=== PATIENT | male | born 1955 | race Caucasian/White ===

== ENCOUNTER → 2020-05-11 11:55 | Outpatient (CLI) | payer MEDICARE, OTHER, SELFPAY ==
--- NOTE | 2020-05-11 | DI.MRI.S_ITS ---
PROCEDURE: MR KNEE RT WO CON INDICATIONS: Unilateral primary osteoarthritis, right knee TECHNIQUE: Noncontrast sagittal PD fast spin echo and T2 fast spin echo with fat saturation, sagittal 3-D FLASH with fat saturation; coronal T1 spin echo and PD fast spin echo with fat saturation, and axial PD fast spin echo with fat saturation through the knee. COMPARISON: None. FINDINGS: Image quality: Excellent. Menisci: Markedly attenuated appearance of body and posterior horn of medial meniscus consistent with chronic complex tear extending to superior and inferior articulating surfaces. Peripheral displacement of medial meniscus bowing medial collateral ligament. Vertical tear involving anterior horn of lateral meniscus is also seen extending to both superior and inferior articulating surfaces. The lateral meniscal root ligament is intact. Torn medial meniscal root ligament is seen. Cruciate ligaments: There is nonvisualization of normal anterior cruciate ligament suggestive of chronic ACL rupture. PCL is intact. Medial structures: Moderate grade MCL sprain is seen. The posterior oblique ligament, semimembranosus tendon insertions, oblique popliteal ligament, and meniscocapsular junction appear intact. Visualized portions of the pes anserinus tendons appear normal. No abnormal bursal fluid. Lateral structures: Proximal LCL sprain/partial-thickness tear is also noted. The popliteus tendon appears normal; the popliteofibular ligament appears intact. The posterosuperior and anteroinferior popliteomeniscal fascicles appear intact. The arcuate and fabellofibular ligaments appear intact, on either side of the lateral inferior geniculate artery. Iliotibial band appears normal. Anterior structures: The quadriceps and patellar tendons appear intact. Patellar alignment is normal. No femoral trochlear dysplasia or ventral trochlear prominence. No edema in the infrapatellar fat pad. Bones and cartilage: Severe medial femoral tibial compartment osteoarthritis and high-grade chondromalacia is seen. Moderate grade osteoarthritis and chondromalacia involving lateral femoral tibial compartment is seen. There is also low to moderate grade chondromalacia and osteoarthritis involving patellofemoral compartment. Nonspecific subcortical cyst formation involving lateral periphery of lateral femoral condyle is seen near proximal LCL insertion. Joint space: There is small to moderate amount of joint fluid. No Mcpherson's cyst. Normal appearing synovial plicae are incidentally noted. IMPRESSION: 1. Severe medial femoral tibial compartment osteoarthritis and chondromalacia. Mild to moderate lateral femoral tibial compartment and patellofemoral compartment osteoarthritis and chondromalacia. No fracture or dislocation. Small to moderate amount of joint fluid. 2. Suggestion of chronic complex tear involving body and posterior horn of medial meniscus with peripheral displacement of medial meniscal remanent bowing medial collateral ligament. There is torn medial meniscal root ligament. 3. Vertical tear involving anterior horn of lateral meniscus extending to both superior and inferior articulating surfaces. 4. Moderate grade MCL sprain. Moderate grade proximal LCL sprain/partial-thickness tear. 5. Suggestion of chronic ACL rupture. PCL is intact. Dictated by: Josué Khan M.D. on 05/11/2020 at 13:02 Approved by: Josué Khan M.D. on 05/11/2020 at 15:56
== END ==
PROVIDERS: PCP Student in an Organized Health Care Education/Training Program; Referring Provider Orthopaedic Surgery; Visit Provider Orthopaedic Surgery
DX: M17.11 Unilateral primary osteoarthritis, right knee (principal); M94.261 Chondromalacia, right knee; S83.281A Other tear of lateral meniscus, current injury, right knee, initial encounter; S83.421A Sprain of lateral collateral ligament of right knee, initial encounter; S83.411A Sprain of medial collateral ligament of right knee, initial encounter
CPT/HCPCS: 73721

== ENCOUNTER → 2020-06-01 07:50 | Outpatient (CLI) | payer MEDICARE, OTHER, SELFPAY ==
[2020-06-01 08:02] LABS: RBC Urine None Seen (0-5/HPF); WBC Urine None Seen (0-5/HPF)
[2020-06-01 09:44] LABS: Add Manual Diff / Slide Review NO; Basophils Absolute Auto 0 /uL (0-100); Basophils Percent Auto 0.9 % (0-2); Eosinophils Absolute Auto 100 /uL (0-450); Eosinophils Percent Auto 2.3 % (2-4); Hematocrit 39.5 % (41-53); Hemoglobin 13.2 g/dL (13.5-17.5); Lymphocytes Absolute Auto 1100 /uL (1100-4500); Lymphocytes Percent Auto 37.3 % (25-40); Mean Corpuscular HGB Conc 33.4 % (30-36); Mean Corpuscular Hemoglobin 29.9 PG (26-34); Mean Corpuscular Volume 89.6 fL (80-100); Monocytes Absolute Auto 300 /uL (0-900); Neutrophils Absolute Auto 1500 /uL (1500-7000); Neutrophils Percent Auto 50.5 % (50-75); Platelet Count 143 X10^3/uL (150-400); Red Cell Distribution Width 12.8 % (11.6-14.8); White Blood Cell Count 2.9 X10^3/uL (4.5-11.0)
[2020-06-01 09:49] LABS: Appearance Urine UA CLEAR; Bilirubin Urine UA NEGATIVE (NEGATIVE); Color Urine UA YELLOW; Glucose Urine UA NEGATIVE (Negative); Ketones Urine UA NEGATIVE (NEGATIVE); Leukocyte Esterase Urine UA NEGATIVE (NEGATIVE); Nitrite Urine UA NEGATIVE (Negative); Occult Blood Urine UA TRACE-LYSED (Negative); Protein Urine UA NEGATIVE (Negative); Urobilinogen Urine UA 0.2 E.U./dL (0.2); pH Urine UA 6.5 (4.5-8.0)
[2020-06-01 09:57] LABS: Hemoglobin A1C% w Est Avg Glu 5.2 % (4.0-6.0)
[2020-06-01 10:21] LABS: Bacteria Urine Occasional (0-1)
[2020-06-01 10:22] LABS: Culture Indicated Urine Cult Not Indicated; Urine Comments Microscopic Normal
[2020-06-01 10:31] LABS: BUN Creatinine Ratio 20.7 (6-22); Blood Urea Nitrogen 17 mg/dL (9-20); Calcium 9.5 mg/dL (8.4-10.2); Carbon Dioxide 30 mmol/L (22-32); Chloride 101 mmol/L (98-107); Estimated Glomerular Filt Rate > 60.0 mL/min (>60); Glucose 90 mg/dL (80-110); HEMOLYSIS < 15 (0-50); Potassium 4.2 mmol/L (3.4-5.1); Sodium 138 mmol/L (137-145)
== END ==
PROVIDERS: PCP Student in an Organized Health Care Education/Training Program; Referring Provider Orthopaedic Surgery; Visit Provider Orthopaedic Surgery
DX: Z01.818 Encounter for other preprocedural examination (principal); R73.9 Hyperglycemia, unspecified; Z01.812 Encounter for preprocedural laboratory examination; N39.0 Urinary tract infection, site not specified
CPT/HCPCS: 36415; 80048; 81001; 83036; 85025; 93005

== ENCOUNTER → 2020-07-06 13:15 | Outpatient (CLI) | payer MEDICARE, OTHER, SELFPAY ==
[2020-07-06 15:12] LABS: COVID19 -Nasal RAPID Negative (Negative)
== END ==
PROVIDERS: PCP Student in an Organized Health Care Education/Training Program; Visit Provider Student in an Organized Health Care Education/Training Program
DX: Z20.822 Contact with and (suspected) exposure to COVID-19 (principal)
CPT/HCPCS: 87635; C9803

== ENCOUNTER 2020-07-07 06:16 | Day surgery (SDC) | payer MEDICARE, OTHER, SELFPAY ==
[2020-06-30 08:44] VITALS: BMI 21.1
[2020-07-07] VITALS (13 sets, daily range): BP systolic 91–131; BP diastolic 46–77; PULSE 48–93; RESP 11–18; TEMP 35.7–37.2; O2SAT 94–100; BMI 21.1
[2020-07-07] MEDS: CELECOXIB 200 MG CAPSULE PO (07:08)
[2020-07-07] MEDS: ACETAMINOPHEN 325 MG TABLET 975 MG PO (07:08)
[2020-07-07] MEDS: VANCOMYCIN 1,000 MG/200 ML PIGGYBACK 200 MG IV (07:09)
[2020-07-07] MEDS: LACTATED RINGERS 1,000 ML 42 ML IV ×2 (07:15→09:21)
--- NOTE | 2020-07-07 07:38 | PM.PREOP ---
Pre-operative Note COVID-19 COVID-19 status: Negative Interval Note History & Physical reviewed/Exam performed by Physician: Yes Changes to H&P: No
--- NOTE | 2020-07-07 07:39 | PM.OP.1 ---
Operative Date/Time/Diagnoses Date of procedure: 07/07/20 Time of procedure: 07:58 Pre-op diagnosis: right knee OA Post-op diagnosis: same Procedure & Clinicians Procedure: Right total knee arthroplasty Same procedure as scheduled: Yes Indications: The patient has had progressively worsening right knee pain with radiographic changes consistent with arthritis. Non-operative management has failed and the patient has requested total knee replacement. The risks, benefits and alternatives to surgery were discussed with the patient prior to proceeding. Risks discussed included, but were not limited to, failure to relieve pain, stiffness, infection, nerve damage, deep venous thrombosis, pulmonary embolism, stroke, coma, heart attack, permanent paralysis and , as well as the potential need for eventual revision of the prosthetic. Surgeon: Maricarmen Gilmore Lacrosse Coach: Anam Card Anesthesia Type: General and Spinal Operative Notes Findings: Severe right knee osteoarthritis with varus deformity with moderate destruction of the right knee medial tibial plateau Closure Type: primary Specimen(s): none sent Prosthetic devices, grafts, tissues, transplants, or devices: [facility] 2 size 7 femur, size 7 tibia, +10 poly, 38 oval patella Applied: drain(s) Estimated Blood Loss (mL): 250 Blood products transfused: none Tourniquet time (min): 95 Procedure in detail: The patient was seen in the pre-operative area, where the patient identified the right knee as the operative site and this was marked with my initials. The patient received pre-operative antibiotics, and was taken to the operating room and placed on the operative table in the supine position. After satisfactory anesthesia, a horse race timer out was performed. The right leg was encircled with a tourniquet about the proximal thigh, and the leg was prepared from the toes to the tourniquet with ChloroPrep in the usual fashion and draped through sterile drapes. The leg was elevated and exsanguinated with Eschmark bandage and the tourniquet inflated to [250] mmHg pressure. The knee was approached through an approximately 18 cm incision centered over the patella and carried into the knee through a medial parapatellar arthrotomy. A portion of the medial and lateral meniscus was resected. Soft tissue was carefully mobilized around the patella the patella was measured with a caliper. Bone was resected from the patella and the patellar height was reconstituted with up an appropriate sized patellar component. A cover was then placed on the patella. A small amount of additional medial and lateral meniscus was resected. The visionare guide fit well to the distal femur. It looked like an appropriate distal femoral cut and the cut was made without difficulty. The rotation was assessed and the appropriate size femoral guide was placed on the distal femur and finishing cuts were made. There wss no evidence of notching. The anterior, posterior and chamfer cuts were then made. The posterior osteophytes and soft tissues were then removed. The posterior capsule was injected with part of a mixture of 60 ml 0.25% Marcaine mixed with 20 ml Exparel for post operative pain control. The remainder of this mixture was injected into the capsule and subcutaneous tissues during cement curing. The tibia was prepared and the visionaire guide fit well to the distal tibia. The rotation was assessed. The patient was placed in extension residual medial and lateral meniscus as well as any residual bone was carefully resected. [No] additional tibia was resected. Hemostasis was achieved especially posteriorly. Additional local was injected into the posterior capsule. The extension gap was assessed and additional releases for gap balancing were performed as necessary. It was checked with the gap hop farm worker. The femoral component was trial was placed and the notch was finished. Trial tibial and femoral components were then placed and the knee placed through a range of motion. Range of motion was [0-130], with good stability throughout the range. The trials were then removed, and the tibia was finished. There was fairly severe sclerosis of the tibia and additional drill holes were made in the medial aspect of the tibia. The bone was prepared with pulsatile lavage, and dried with a sponge. Cement was applied and the final prosthetics placed. Excess cement was removed during and after cement curing. A brief Betadine soak was performed. After confirming there was no extruded cement posteriorly, the final tibial insert was placed. The knee was copiously irrigated and the tourniquet deflated. Hemostasis was obtained with the Bovie. A drain was placed and brought out superolaterally. The capsule was closed with interrupted Vicryl suture. The subcutaneous layer was closed with barbed sutures, and the skin with a running 3-0 V-Lock suture and Surgical glue. An Aquacel Ag dressing was applied and the patient was taken to recovery having tolerated the procedure well. Complications: none Post-operative Condition: stable Disposition: Acute Care Plan for aftercare: The patient will be maintained on a standard total knee replacement protocol with weight bearing as tolerated. The patient will receive aspirin and sequential compression devices for DVT prophylaxis. The patient will be discharged home when safe for the home environment.
[2020-07-07] MEDS: CEFAZOLIN 2 GM/100 ML FROZ.PIGGY IV ×2 (07:49→17:15)
[2020-07-07] MEDS: TRANEXAMIC ACID 1,000 MG VIAL 1000 MG INJ ×2 (08:11→09:59)
--- NOTE | 2020-07-07 08:27 | SUR.OPER ---
Supine on padded OR bed. Pillow under head, arms secured on padded armboards <90 degree abduction. Safety belt across torso. Non-operative leg secured with tape over blanket over lower leg. Operative leg secured in DeMayo/Will positioner. Foam padded brace at thigh of operative leg.
[2020-07-07] MEDS: BUPIVACAINE LIPOSOME 266 MG/20 ML VIAL INJ (08:35)
[2020-07-07] MEDS: BUPIVACAINE 0.25% W/ EPI 30 ML VIAL 60 ML INJ (08:35)
[2020-07-07] MEDS: SODIUM CHLORIDE IRRIG SOLUTION 250 ML, POVIDONE-IODINE SPONGE STICKS 1 APPLIC IRR (08:36)
--- NOTE | 2020-07-07 10:00 | DI.RAD.S_ITS ---
PROCEDURE: XR KNEE RT 1TO2V INDICATIONS: RT TOTAL KNEE TECHNIQUE: To view(s) of the knee acquired. COMPARISON: None. FINDINGS: Bones: Patient is status post knee joint arthroplasty. Hardware components are in expected positions. Visualized bony structures are intact. Soft tissues: Overlying postoperative changes are noted. IMPRESSION: Normal alignment after right total knee arthroplasty. Dictated by: Everett Pizano M.D. on 07/07/2020 at 16:41 Approved by: Everett Pizano M.D. on 07/07/2020 at 16:42
[2020-07-07] MEDS: LACTATED RINGERS 1,000 ML 100 ML IV ×2 (11:30→22:14)
--- NOTE | 2020-07-07 13:11 | PC.NURSE ---
Patient has an aquacel and matt wrap to her r.knee, hemovac just unclamped at 1235, bloody drainage going into collection chamber. Patient states that he has feeling to his leg and knees and that his foot is having more feeling. Patients bottom is a bit read, maybe from position that they had patient in when doing his surgery. Area is blanchable. IVF infusing and patient is resting comfortably and tolerating a general diet.
[2020-07-07] MEDS: IBUPROFEN 400 MG TABLET PO ×3 (14:40→21:27)
[2020-07-07] MEDS: ACETAMINOPHEN 325 MG TABLET 650 MG PO ×2 (14:40→21:26)
--- NOTE | 2020-07-07 15:55 | PT.IIE ---
Current Diagnoses Unilateral primary osteoarthritis, right knee (07/07/20) Surgery Performed Operation Date: 07/07/20 07:45 Actual Procedures p Total Knee Arthroplasty(Right) - Maricarmen Gilmore MD Surgical History (Last Updated 06/30/20 @ 09:14 by Serenity Chi, RN) History of carpal tunnel surgery of left wrist History of colonoscopy with polypectomy Hx of nasal septoplasty Hx of tonsillectomy Medical History (Last Updated 06/30/20 @ 09:14 by Serenity Chi, RN) Anxiety Arthritis Elevated cholesterol Enlarged prostate Neuropathy Osteoarthritis Raynaud's phenomenon Tinnitus Vitreous detachment of left eye Physical Therapy Inpatient Evaluation/Re-Eval M1 PT/OT-IP Prior Functional Status Start: 07/07/20 17:12 Freq: NEEDED Status: Active Protocol: Document 07/07/20 15:55 AB (Rec: 07/07/20 17:26 AB [id number]) Medical Review Prior Functional Status Medical History Reviewed Yes Communication able to make needs known Mobility and Gait pt stated that he is independent with all mobilities and ambulation without AD Social History Household Members none Living Arrangements House Number of Floors (Floors) One Floor Number of Stairs To Enter/Railing? steep ramp to enter or can use 3 steps without rails to enter Home Environment High Toilet,Walk in Shower Home Equipment Front Wheel Walker,Straight Cane,Crutches,Shower Seat with Backrest,Grab Bars Near Toilet Additional Social History Comment pt's friend Carie will stay and assist him for ~ 2 days. pt lives at [facility]. M2 PT-IP Current Condition Start: 07/07/20 17:12 Freq: NEEDED Status: Active Protocol: Document 07/07/20 15:55 AB (Rec: 07/07/20 17:26 AB [id number]) Physical Therapy Current Condition Current Condition Evaluation Date 07/07/20 Treatment Diagnosis s/p R TKA; difficulty in walking Onset Date 07/07/20 Weight Bearing Status Weight Bearing Status Weight Bear as Tolerated Allowed Weight Bearing Amount (enter % RLE WBAT or #) (%) M3 PT-IP Subjective Start: 07/07/20 17:12 Freq: NEEDED Status: Active Protocol: Document 07/07/20 15:55 AB (Rec: 07/07/20 17:26 AB [id number]) Subjective Physical Therapy Visit Type Type Initial Evaluation Visit Start Time 15:55 Visit Stop Time 16:55 Total Visit Minutes 60 Number of FOOD ASSEMBLER KITCHEN Visits 0 Physical Therapy Visit Comments Patient Comments agreeable to do PT Therapy Pain Assessment Pain When Pain Assessed At Rest Pain Present Pain Present Pain Reported Location Right Knee Intensity 3 Scale Used Numeric (0 - 10) Pain Management Techniques Apply Cold,Distraction, Modification of Treatment,Re- positioning,Timing of Activity with Medications M4 PT-IP Mobility and Gait Start: 07/07/20 17:12 Freq: NEEDED Status: Active Protocol: Document 07/07/20 15:55 AB (Rec: 07/07/20 17:26 AB [id number]) PT-Bed Mobility Assessment Supine to Sit Supine to Sit Standby Assistance PT-Transfer Assessment Sit to and From Stand Sit to and from Stand Minimal Assistance,1 Person Assistance,Use of Upper Extremities Equipment Transfer Assistive Device Gait Belt,Front Wheeled Walker Orthotic/Prosthetic Devices or Brace: No Transfers Transfer Destination Chair Transfer Technique ambulation using FWW Transfer Ability Level of Assist Minimal Assistance,1 Person Assistance,Use of Upper Extremities Comments Mobility Comments pt stated that he has sensation back to B LE but still has slight numbness on groin and buttocks area. agreed to do PT. completed heel slides prior to mobility. BP supine: 107/76. completed supine to sit SBA. pt stated that he gets anxious but denies dizziness. BP in sittin/73. completed sit to stand min A and cues for quads activation. Pt now stating that there is slight numbness on upper thigh but pt was able to control RLE. ambulated towards the chair using FWW min A and cues. pt stated that he can feel RLE is weak . agreed to sit up on chair. positioned on chair. call light and table placed within reach. BP at end of tx session: 109/74. pt's friend in room with pt and will plan to come in tomorrow at ~ 2pm and can do caregiver training if needed. Gait Assessment Gait Gait Assistance Required: Minimum Assistance Distance (Feet) 15 Able to Maintain Weight Bearing Status Yes During Gait Assistive Devices Assistive Device Gait Belt,Front Wheeled Walker Orthotic/Prosthetic Devices or Brace: No Factors Limiting Gait Function Factors Limiting Gait Function Decreased Activity Tolerance, Decreased Sensation,Decreased Strength,Limited Range of Motion,Pain,Poor Balance Comments Gait Comments pls refer to mobility section for details. PT-Balance Assessment Sitting Balance and Reactions Static Sitting Balance Ability Normal Dynamic Sitting Balance Ability Good Standing Balance and Reactions Static Standing Balance Ability Fair Dynamic Standing Balance Ability Fair Device Used FWW M5 PT-IP Objective Assessments Start: 07/07/20 17:12 Freq: NEEDED Status: Active Protocol: Document 07/07/20 15:55 AB (Rec: 07/07/20 17:26 AB [id number]) Orientation Orientation/Cognition Level of Alertness Alert Orientation Name,Age,Birthday,Month,Date, Year,Day of Week,Place, Situation Language Function Ability No Deficits Noted Safety Awareness Understands Safety Issues Memory Description No Deficits Noted Gross Range of Motion Lower Extremity ROM Assessment Within Functional Limits Impairments R knee flexion: ~ 100 deg Strength Lower Extremity Strength Assessment Right Impaired Hip 4-/5 Knee 3+/5 Coordination Assessment Gross Coordination Gross Coordination WNL Sensation Assessment Sensation Sensation Description Numbness Comments Sensation Comments R upper thigh numbness, buttocks/groin Muscle Tone Muscle Tone WNL Yes M6 PT-IP Treatment Start: 07/07/20 17:12 Freq: NEEDED Status: Active Protocol: Document 07/07/20 15:55 AB (Rec: 07/07/20 17:26 AB [id number]) Physical Therapy Treatment Exercises Exercises Heel Slides Education Education Provided Precautions,Weight Bearing Status,Post-Op Packet,Safety M7 PT-IP Assessment and Plan Start: 07/07/20 17:12 Freq: NEEDED Status: Active Protocol: Document 07/07/20 15:55 AB (Rec: 07/07/20 17:26 [id number]) PT Summary Assessment and Plan Potential Rehabilitation Potential Good Status of Condition at Evaluation Evolving Summary Impairments Pain,ROM,Strength,Balance, Coordination,Sensation,Tone, Cognition,Bed Mobility, Transfers,Gait,Activity Tolerance Assessment Summary pt s/p R TKA POD 0 and still has slight numbness on R upper thigh, buttocks/groin area. completed mobility requiring min A using FWW for ambulation but unable to ambulate furthre due to feeling numbness on RLE and weakness. will continue to assess progress. pt's friend will be staying with him for ~ 2 days to assist as needed will be coming in at ~ 2 pm and caregiver training will be conducted when appropriate. Goals Bed Mobility Goal Independent Transfer Goal Independent,Front Wheeled Walker Gait Goal Independent,Front Wheel Walker Gait Distance 150 Other Goals up/down 3 steps SPC/bilateral crutches SBA Days to Meet Goals 5 Frequency of Treatment Frequency Of Treatment Twice a Day Treatment Plan Physical Therapy Treatment Plan Bed Mobility Training,Transfer Training,Gait Training, Therapeutic Exercise,Balance Retraining,Post Op Education, Discharge Planning,Hot or Cold Pack,Neuromuscular Re-ed, Coordination Retraining,Manual Therapy Precautions Other Precautions RLE WBAT Recommendations To Nursing Amount of Assist Needed 1 Person Assist Discharge Recommendations PT Discharge Recommendations Home with Assistance, Outpatient PT Transportation Needs at Discharge Private Vehicle
--- NOTE | 2020-07-07 18:35 | PC.NURSE ---
Addendum entered by Tyra Melissa R.N. 07/08/20 04:18: family will be notified in the morning. pt doing ok. continue to monitor vitals. call provider if patient is symptomatic. Addendum entered by Tyra Melissa R.N. 07/08/20 04:11: pt had a fall at 0240, pt felt dizzy while walking on his way back to the bed. 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 no injuries. pt's R. knee pain 2/10 as it was before. notified provider. BP 62/35. pt's BP starting to increase 95/62. no new order. called provider again pt's bp 87/57, vto for 500cc LR bolus. Bolus infused from pre existing bag. Addendum entered by Tyra Melissa R.N. 07/07/20 21:59: recheck hv output 175cc, notified Dr. Rico. keep hemovac, but not charged and not hanging by gravity. per provider ok for hv to drain extra 300-400cc. Addendum entered by Tyra Melissa R.N. 07/07/20 18:49: pt's total hemovac output since days shift is 405cc. notified , VTO to take the charge off the HV, but keep it attach and call provider [phone] for an update. Original Note: At this time, pt is ambulating in hallways with SBA-fww. no dizziness or light headedness. denies any nausea. pain 2/10 and tolerable.
[2020-07-07] MEDS: DOCUSATE 100 MG CAPSULE PO (21:26)
[2020-07-07] MEDS: ASPIRIN EC 81 MG TABLET PO (21:26)
[2020-07-08] VITALS (11 sets, daily range): BP systolic 62–120; BP diastolic 26–65; PULSE 51–113; RESP 16–18; TEMP 35.9–36.6; O2SAT 95–100
[2020-07-08] MEDS: CEFAZOLIN 2 GM/100 ML FROZ.PIGGY IV (01:03)
[2020-07-08] MEDS: IBUPROFEN 400 MG TABLET PO ×4 (01:03→13:24)
[2020-07-08] MEDS: LACTATED RINGERS 1,000 ML 100 ML IV (04:26)
[2020-07-08 06:59] LABS: Hematocrit 30.9 % (41-53); Hemoglobin 10.5 g/dL (13.5-17.5)
--- NOTE | 2020-07-08 07:27 | P.PN_ITS ---
Subjective Subjective Date Patient Seen: 07/08/20 Time Patient Seen: 07:27 Interval history: Patient states he is doing well overall and has minimal pain at rest. At this time the patient denies fever, chills, nausea, chest pain, shortness of breath, or urinary retention. Patient reports 1 episode of dizziness and lightheadedness yesterday when attempting to use the commode. He denies any symptoms after that episode. Patient states he is looking forward to working with physical therapy later today. Exam Vital Signs (past 8 hours): - 07/08/20 00:00 07/08/20 02:36 07/08/20 02:38 Temperature 97.8 F Pulse Rate 59 L 113 H 69 Respiratory Rate 18 Blood Pressure 101/60 76/26 L 62/35 L Pulse Oximetry 95 07/08/20 02:41 07/08/20 02:44 07/08/20 02:51 Temperature Pulse Rate 66 62 51 L Respiratory Rate Blood Pressure 91/51 L 120/65 86/55 L Pulse Oximetry 07/08/20 04:00 07/08/20 04:22 Temperature 97.7 F Pulse Rate 58 L 53 L Respiratory Rate 18 Blood Pressure 93/59 L 93/61 Pulse Oximetry 95 Oxygen Delivery Method Room Air Oxygen Flow Rate 0 Narrative Exam Narrative: Pleasant 64-year-old male postop day 1 status post right total knee arthroplasty. Patient is resting comfortably in bed, is in no acute dis tress, is alert and oriented x3. Skin is warm and dry. Good sensation appreciated throughout the bilateral lower extremities to light touch. Hip flexion performed bilaterally without difficulty or discomfort, left greater than right. Calves are soft and nontender, negative Homans sign. Ankle in version, eversion, plantar flexion, dorsiflexion performed bilaterally without difficulty or discomfort. Palpable pulses appreciated bilaterally in the lower extremities. No other signs of DVT. Const General: cooperative, healthy appearing and comfortable Resp Effort & Inspection: normal respiratory effort and able to speak in complete sentences Skin General: no rashes or lesions noted Objective Labs Result Diagrams: 07/08/20 06:35 Labs: Laboratory Results - last 24 hr 07/08/20 06:35 Hgb 10.5 L Hct 30.9 L PFSH Medical History Anxiety Arthritis Elevated cholesterol Enlarged prostate Neuropathy Osteoarthritis Raynaud's phenomenon Tinnitus Vitreous detachment of left eye Surgical History History of carpal tunnel surgery of left wrist History of colonoscopy with polypectomy Hx of nasal septoplasty Hx of tonsillectomy Social History household members: none Smoking Status: Never smoker alcohol intake: current Assessment & Plan Post-op Postoperative Procedures: Procedures Operation Date: 07/07/20 07:45 Actual Procedures Side Surgeon p Total Knee Arthroplasty Right Maricarmen Gilmore MD Postoperative day: 1 Postoperative status: doing well Postoperative plan: ambulate Postoperative plan narrative: Patient is to continue working with physical therapy on ambulation with the assistance of a front wheeled walker. Patient is to remain weight-bearing as tolerated with standard total knee replacement protocol. Repeat H and H was drawn this morning will be checked based off of the patient's symptoms of dizziness and lightheadedness reported yesterday. Patient is to continue current pain management regimen as it is adequately controlling the patient's pain level. Patient will be monitored for further episodes of dizziness when working with PT today. Time Spent With Patient Time with patient: 15-24 minutes Quality VTE Deep Vein Thrombosis/Pulmonary Embolism Present on Admission: No
[2020-07-08] MEDS: ASPIRIN EC 81 MG TABLET PO (08:42)
[2020-07-08] MEDS: DOCUSATE 100 MG CAPSULE PO (08:42)
[2020-07-08] MEDS: ACETAMINOPHEN 325 MG TABLET 650 MG PO (08:42)
--- NOTE | 2020-07-08 11:44 | P.DS_ITS ---
History of Present Illness History of Present Illness Date Patient Seen: 07/08/20 Time Patient Seen: 11:44 Chief complaint: Right Total Knee Arthroplasty *OPB* Narrative: Refer to previous HPI. Discharge Providers Provider Discharge Date: 07/08/20 Primary care physician: Osvaldo Cook MD Consults: 07/07/20 06:30 Consult to Anesthesiology Routine Comment: Consulting Provider: Anesthesiologist Reason for consultation: Regional block for post operative pain control 07/07/20 12:40 Consult to Discharge Planning Routine Comment: Consult to Physical Therapy Evaluate & Treat Comment: Physician Instructions: postop TKA protocol Consult to Respiratory Therapy Evaluate & Treat Comment: Physician Instructions: Evaluate and treat Discharge provider: Dirk Meyers PA-C Summary Hospital Course Discharge Diagnosis: Right knee osteoarthritis Status post right total knee arthroplasty. Hospital Course: Patient was admitted to the hospital following the above listed procedure for the above-listed diagnosis. Following the procedure the patient has been convalescing appropriately and his pain has been managed with his current pain control regimen. Throughout the course of his stay in the hospital the patient has denied fever, chills, nausea, chest pain, shortness of breath, or urinary retention. An episode of lightheadedness and dizziness was reported once when the patient got up to use the commode, but no further episodes of lightheadedness or dizziness has been reported since that time. Patient has been using aspirin 81 mg twice daily for DVT prophylaxis along with use of SCDs. Patient is successfully work on ambulation with the assistance of a front wheeled walker with physical therapy. Status at Discharge Cognitive/behavioral status at discharge: oriented Functional status at discharge: uses cane/walker Overall status at discharge: patient is progressing back to baseline Exam Vital Signs (past 8 hours): - 07/08/20 04:00 07/08/20 04:22 07/08/20 07:17 Temperature 97.7 F Pulse Rate 58 L 53 L Respiratory Rate 18 Blood Pressure 93/59 L 93/61 Pulse Oximetry 95 95 07/08/20 08:00 Temperature 96.6 F L Pulse Rate 69 Respiratory Rate 18 Blood Pressure 103/63 Pulse Oximetry 100 Oxygen Delivery Method Room Air Oxygen Flow Rate 0 Narrative Exam Narrative: Pleasant 64-year-old male postop day 1 status post right total knee arthroplasty. Patient is resting comfortably in bed, is in no acute distress, is alert and oriented x3. Skin is warm and dry, and the skin surrounding the incision site is free of erythema, warmth, induration, or discharge. Dressing over the incision is clean and dry, no strike through appreciated. Good sensation appreciated throughout the bilateral lower extremities to light touch. Hip flexion performed bilaterally without difficulty or discomfort, left greater than right. Ankle dorsiflexion, plantar flexion, eversion, inversion performed bilaterally without difficulty or discomfort. Calves are soft nontender, negative Homans sign. Palpable pulses appreciated, capillary refill less than 2 seconds. No other signs of DVT appreciated. Const General: cooperative, healthy appearing and comfortable Resp Effort & Inspection: normal respiratory effort and able to speak in complete sentences Skin General: no rashes or lesions noted Objective Labs Result Diagrams: 07/08/20 06:35 Labs: Laboratory Results - last 24 hr 07/08/20 06:35 Hgb 10.5 L Hct 30.9 L PFSH Medical History Anxiety Arthritis Elevated cholesterol Enlarged prostate Neuropathy Osteoarthritis Raynaud's phenomenon Tinnitus Vitreous detachment of left eye Surgical History History of carpal tunnel surgery of left wrist History of colonoscopy with polypectomy Hx of nasal septoplasty Hx of tonsillectomy Social History household members: none Smoking Status: Never smoker alcohol intake: current Discharge Assessment & Plan Assessment and Plan Assessment: Patient is doing well. Plan of Treatment: Patient is to remain weight-bearing as tolerated with the assistance of a front wheeled walker. Outpatient physical therapy following discharge from the hospital. Current pain management regimen is to be continued as it is adequately controlling patient's pain level. Aspirin 81 mg twice daily is to be continued for 6 weeks for DVT prophylaxis. The patient is to follow-up in the clinic for his 1st postoperative appointment 2 weeks following discharge from the hospital. Patient is to contact the clinic with any concerns or questions. Any signs of increased redness, swelling, warmth, or discharge from the incision site should be reported to the clinic. Standard total knee replacement protocol. Discharge Plan Discharge Plan Patient Disposition: Home Provider Discharge Comment: Patient cleared for discharge pending PT approval and no further episodes of hypotension or dizziness with ambulation. Discharge orders & Medications Discharge Orders: Discharge (Order); Ordered 07/08/20 Ordered By: Maricarmen Gilmore Prescriptions: New acetaminophen 325 mg Tablet 650 mg PO TID Qty: 90 RF: 0 aspirin 81 mg Tablet,Delayed Release (Dr/Ec) 81 mg PO BID Qty: 90 RF: 0 ibuprofen 400 mg Tablet 400 mg PO Q4HR Qty: 90 RF: 0 oxycodone 5 mg Tablet 10 mg PO Q4HR PRN (Reason: Pain, Severe (7-10)) Qty: 42 RF: 0 No Action No Known Home Medications RF: 0 Follow up/Referrals: Osvaldo Cook MD [Primary Care Provider] - Diet/Activity/Treatments Diet: Diet as Tolerated Activity: Standard knee replacement protocol. Patient is to remain weight- bearing as tolerated with the assistance of a front wheeled walker. Skin/Wound/Dressing Care Report to your healthcare provider any signs of infection, such as:: chills, fever, night sweats, increased pain, unusual drainage and unusual redness Dressing: Dressing over the incision is to remain, clean, dry, and intact. Contact the clinic if the dressing is removed, saturated, or damaged. Other wound treatment: Avoid placing topical ointments over the incision. Visit Report/Discharge Packet Instructions: DI for Knee Replacement Stand Alone Forms: Surgery Discharge Discharge Data Primary Care Provider: Osvaldo Cook Attending Provider: Maricarmen Gilmore VTE Deep Vein Thrombosis/Pulmonary Embolism Present on Admission: No
--- NOTE | 2020-07-08 11:57 | CM.DANOTE ---
DCP: Case received, EMR reviewed and met with patient. Introduced self and role. Padmaja Posadas, was also in the room. Was able to obtain information from patient regarding his baseline activity status prior to surgery, and his current living situation, as well as who will be assisting him at home at discharge. DCP assessment completed with information currently available. Patient is a 64 year old male who admitted yesterday morning to the care of the orthopedic team. PCP: Dr. Cook. Payer: confirmed: Medicare/[employer]. Patient came to the hospital via private vehicle for a surgical procedure. He had right total knee arthroplasty. Patient has had history of osteoarthritis of his knee. He had some dizziness yesterday, which resulted in a fall, but no injury. Met with patient in his room. He was sitting up in his chair, alert and oriented, pleasant. He resides in [place] alone. He is retired, independent at baseline, and is physically active. He stated that he has a friend named Deandra, who will be assisting him when he goes home. He has 3 stairs to get into his home. Deandra will be coming later today to do some training with [employer]. P: Patient does have discharge orders. He will work again with P.T, and friend, Deandra will come in. Will also be monitoring his blood pressures, since they have been running low. Tootie Sarmiento RN/Kennel Aide
--- NOTE | 2020-07-08 12:00 | PT.IPTN ---
Current Diagnoses Unilateral primary osteoarthritis, right knee (07/07/20) Surgery Performed Operation Date: 07/07/20 07:45 Actual Procedures p Total Knee Arthroplasty(Right) - Maricarmen Gilmore MD Physical Therapy Treatment Note M2 PT-IP Current Condition Start: 07/07/20 17:12 Freq: NEEDED Status: Active Protocol: Document 07/07/20 15:55 AB (Rec: 07/07/20 17:26 AB [id number]) Physical Therapy Current Condition Current Condition Evaluation Date 07/07/20 Treatment Diagnosis s/p R TKA; difficulty in walking Onset Date 07/07/20 Weight Bearing Status Weight Bearing Status Weight Bear as Tolerated Allowed Weight Bearing Amount (enter % RLE WBAT or #) (%) M3 PT-IP Subjective Start: 07/07/20 17:12 Freq: NEEDED Status: Active Protocol: Document 07/08/20 11:20 SP (Rec: 07/08/20 13:34 SP [id number]) Subjective Physical Therapy Visit Type Type Treatment Note Visit Start Time 11:20 Visit Stop Time 12:00 Total Visit Minutes 40 Notes Vitals taken during tx: supine BP 97/62 HR 60 SaO2 99% RA seated 1113/71 HR 61 standing 97/68 stand post step mgt 88/62 seated 92/68 with report of dizziness post activity. Number of INDUSTRIAL ARTS TEACHER Visits 1 Physical Therapy Visit Comments Patient Comments agreeable to work with therapy . My blood pressures have been low with some dizziness, I fell at 2 am using bathroom and the nurse was with me. Patient Goals return home with friend to assist him. Therapy Pain Assessment Pain When Pain Assessed At Rest Pain Present Pain Present Pain Reported Location Right Knee Intensity 2 Scale Used Numeric (0 - 10) Description With Movement Pain Management Techniques Apply Cold,Modification of Treatment,Re-positioning, Timing of Activity with Medications M4 PT-IP Mobility and Gait Start: 07/07/20 17:12 Freq: NEEDED Status: Active Protocol: Document 07/08/20 11:20 SP (Rec: 07/08/20 13:34 SP [id number]) PT-Bed Mobility Assessment Supine to Sit Supine to Sit Standby Assistance Scooting Scooting to Edge of Bed Standby Assistance PT-Transfer Assessment Sit to and From Stand Sit to and from Stand Standby Assistance,Use of Upper Extremities Equipment Transfer Assistive Device Gait Belt,Front Wheeled Walker Orthotic/Prosthetic Devices or Brace: No Transfers Transfer Destination Chair Transfer Technique ambulation using FWW Transfer Ability Level of Assist Standby Assistance,Use of Upper Extremities Comments Mobility Comments Pt completed supine>sit, scoot to EOB, Sit>stand using fWW sBA. Assessed BPs for safety with mobility, see notes. Pt ambulated to PF step in room using fWW sBA min BUE WB on FWW step over step patterning, INDUSTRIAL ARTS TEACHER management IV pole. Ascend/descend 1 PF step using SPC and crutch rail as walking stick x3 reps CGA with assist for IV pole in room for safety with decrease BPs, assimulating 3 stairs enter home. Pt returned to chair using fWW sBA, stand>sit SBA. Pt reported dizziness end of tx with noted decreased in BP with standing activity, declined further gait for safety. Pt was reclined in chair with call light and all needs in reach before left. Gait Assessment Gait Gait Assistance Required: Standby Assistance Distance (Feet) 15 Able to Maintain Weight Bearing Status Yes During Gait Assistive Devices Assistive Device Gait Belt,Front Wheeled Walker Orthotic/Prosthetic Devices or Brace: No Gait Deviations General Gait Pattern Antalgic,Decreased Stride Length,Decreased Feet Clearance,Step-to Gait Factors Limiting Gait Function Factors Limiting Gait Function Decreased Activity Tolerance, Decreased Strength,Limited Range of Motion,Pain Comments Gait Comments please refer to mobility section. Stair Climbing Assessment Evaluation Level of Assist On Stairs Contact Guard Assistance,1 Person Assistance Devices Stair Climbing Assistive Devices Straight Cane Technique/Endurance Stair Climbing Direction Ascend and Descend Stair Climbing Technique Step to Step Number of Steps Climbed 1 Stair Climbing Set # Repetitions (reps) 3 Comments Stair Climbing Comments ascend/descend 3 PF steps using SPC in LUE and rail of a crutch to assimulate walking stick at home, CGA cued x1 as needed for sequencing, stable. Pt reported dizziness after 3rd step. PT-Balance Assessment Sitting Balance and Reactions Static Sitting Balance Ability Normal Dynamic Sitting Balance Ability Normal Standing Balance and Reactions Static Standing Balance Ability Good Dynamic Standing Balance Ability Good Device Used FWW M5 PT-IP Objective Assessments Start: 07/07/20 17:12 Freq: NEEDED Status: Active Protocol: Document 07/07/20 15:55 AB (Rec: 07/07/20 17:26 AB [id number]) Orientation Orientation/Cognition Level of Alertness Alert Orientation Name,Age,Birthday,Month,Date, Year,Day of Week,Place, Situation Language Function Ability No Deficits Noted Safety Awareness Understands Safety Issues Memory Description No Deficits Noted Gross Range of Motion Lower Extremity ROM Assessment Within Functional Limits Impairments R knee flexion: ~ 100 deg Strength Lower Extremity Strength Assessment Right Impaired Hip 4-/5 Knee 3+/5 Coordination Assessment Gross Coordination Gross Coordination WNL Sensation Assessment Sensation Sensation Description Numbness Comments Sensation Comments R upper thigh numbness, buttocks/groin Muscle Tone Muscle Tone WNL Yes M6 PT-IP Treatment Start: 07/07/20 17:12 Freq: NEEDED Status: Active Protocol: Document 07/08/20 11:20 SP (Rec: 07/08/20 13:34 SP [id number]) Physical Therapy Treatment Exercises Exercises Ankle Pumps,Quad Sets,Heel Slides,Straight Leg Raises, Short Arc Quads,Seated Knee Flexion/Extension Knee ROM Measurement 80 deg Education Education Provided Precautions,Weight Bearing Status,Post-Op Packet,Safety M7 PT-IP Assessment and Plan Start: 07/07/20 17:12 Freq: NEEDED Status: Active Protocol: Document 07/08/20 11:20 SP (Rec: 07/08/20 13:34 SP [id number]) PT Summary Assessment and Plan Potential Rehabilitation Potential Good Status of Condition at Evaluation Evolving Summary Impairments Pain,ROM,Strength,Balance, Coordination,Sensation,Tone, Cognition,Bed Mobility, Transfers,Gait,Activity Tolerance Progress Towards Goals Progressing Toward Goals,Slow Progress due to Pain,Slow Progress due to Medical Issues ,Slow Progress due to Activity Tolerance Assessment Summary Pt having decreased blood pressure during postion changes and reports of dizziness end tx, see vitals taken. Completed mobility requiring SBA during all mobility, using FWW for ambulation but unable to ambulate furthre due to dizziness and orthostatic BPs. will continue to assess progress. pt's friend will be staying with him for ~ 2 days to assist as needed will be coming in at ~ 2 pm for caregiver training will be conducted. Goals Bed Mobility Goal Independent Transfer Goal Independent,Front Wheeled Walker Gait Goal Independent,Front Wheel Walker Gait Distance 150 Other Goals up/down 3 steps SPC/bilateral crutches SBA Days to Meet Goals 5 Frequency of Treatment Frequency Of Treatment Twice a Day Treatment Plan Physical Therapy Treatment Plan Bed Mobility Training,Transfer Training,Gait Training, Therapeutic Exercise,Balance Retraining,Post Op Education, Discharge Planning,Hot or Cold Pack,Neuromuscular Re-ed, Coordination Retraining,Manual Therapy Other Recommendations and Next Treatment Assess vitals, caregiver Focus training, gait further distance, 3 step mgt if safe BPs. Precautions Other Precautions RLE WBAT Recommendations To Nursing Amount of Assist Needed 1 Person Assist Discharge Recommendations PT Discharge Recommendations Home with Assistance, Outpatient PT Transportation Needs at Discharge Private Vehicle
--- NOTE | 2020-07-08 14:44 | PT.IPTN ---
Current Diagnoses Unilateral primary osteoarthritis, right knee (07/07/20) Surgery Performed Operation Date: 07/07/20 07:45 Actual Procedures p Total Knee Arthroplasty(Right) - Maricarmen Gilmore MD Physical Therapy Treatment Note M2 PT-IP Current Condition Start: 07/07/20 17:12 Freq: NEEDED Status: Discharge Protocol: Document 07/07/20 15:55 AB (Rec: 07/07/20 17:26 AB [id number]) Physical Therapy Current Condition Current Condition Evaluation Date 07/07/20 Treatment Diagnosis s/p R TKA; difficulty in walking Onset Date 07/07/20 Weight Bearing Status Weight Bearing Status Weight Bear as Tolerated Allowed Weight Bearing Amount (enter % RLE WBAT or #) (%) M3 PT-IP Subjective Start: 07/07/20 17:12 Freq: NEEDED Status: Discharge Protocol: Document 07/08/20 14:18 SP (Rec: 07/08/20 17:44 SP [id number]) Subjective Physical Therapy Visit Type Type Treatment Note Visit Start Time 14:18 Visit Stop Time 14:44 Total Visit Minutes 26 Notes Vitals takend during mobility : seated BP 110/65 HR 68 stand BP 96/64 HR 73 post walk/ stairs BP 108/63 HR 73 Friend Deandra completed caregiver training and assist as needed throughout tx. Number of FURNACE ERECTOR Visits 2 Physical Therapy Visit Comments Patient Comments Pt agreeable to working with therapy with assist of friend. Patient Goals return home with friend to assist him. Therapy Pain Assessment Pain When Pain Assessed At Rest Pain Present Pain Present Pain Reported Location Right Knee Intensity 3 Scale Used Numeric (0 - 10) Description Tender,With Movement Pain Management Techniques Apply Cold,Modification of Treatment,Re-positioning, Timing of Activity with Medications M4 PT-IP Mobility and Gait Start: 07/07/20 17:12 Freq: NEEDED Status: Discharge Protocol: Document 07/08/20 14:18 SP (Rec: 07/08/20 17:44 SP [id number]) PT-Transfer Assessment Sit to and From Stand Sit to and from Stand Standby Assistance,Use of Upper Extremities Equipment Transfer Assistive Device Gait Belt,Front Wheeled Walker Transfers Transfer Destination Chair Transfer Technique ambulation using FWW Transfer Ability Level of Assist Standby Assistance,Use of Upper Extremities Comments Mobility Comments Assessed BPs for safety pre and with mobility, see notes. Sit>stand SBA, pt ambulated further into hallway to stairs and back with no reports of dizziness using fWW SBA- CG step to patterning initially then progressed to step over step as distance progressed. Ascend/descend 6 stairs using SPC LUE and crutch pole as walking stick. When returned to room pt's BP maintained 108 /63 with mobiltiy. Pt returned to chair, SBA. Pt was reclined in chair with call light and all needs in reach before left, friend in room. Pt stated has outpt set up for Monday and friend's will provide transportation. Gait Assessment Gait Gait Assistance Required: Standby Assistance Distance (Feet) 15 Able to Maintain Weight Bearing Status Yes During Gait Assistive Devices Assistive Device Gait Belt,Front Wheeled Walker Orthotic/Prosthetic Devices or Brace: No Gait Deviations General Gait Pattern Antalgic,Decreased Stride Length,Decreased Feet Clearance,Step-to Gait Factors Limiting Gait Function Factors Limiting Gait Function Decreased Activity Tolerance, Decreased Strength,Limited Range of Motion,Pain Comments Gait Comments see mobility comments. Good knee flexion and heel toe patterning, step over step using FWW. Stair Climbing Assessment Evaluation Level of Assist On Stairs Contact Guard Assistance,1 Person Assistance Devices Stair Climbing Assistive Devices Straight Cane Technique/Endurance Stair Climbing Direction Ascend and Descend Stair Climbing Technique Step to Step Number of Steps Climbed 3 Stair Climbing Set # Repetitions (reps) 2 Comments Stair Climbing Comments ascend/descend 3 stairs x2 SPC , crutch as walking stick CGA step to patterning with good verbal self walk through, stable. PT-Balance Assessment Sitting Balance and Reactions Static Sitting Balance Ability Normal Dynamic Sitting Balance Ability Normal Standing Balance and Reactions Static Standing Balance Ability Good Dynamic Standing Balance Ability Good Device Used FWW M5 PT-IP Objective Assessments Start: 07/07/20 17:12 Freq: NEEDED Status: Discharge Protocol: Document 07/07/20 15:55 AB (Rec: 07/07/20 17:26 AB [id number]) Orientation Orientation/Cognition Level of Alertness Alert Orientation Name,Age,Birthday,Month,Date, Year,Day of Week,Place, Situation Language Function Ability No Deficits Noted Safety Awareness Understands Safety Issues Memory Description No Deficits Noted Gross Range of Motion Lower Extremity ROM Assessment Within Functional Limits Impairments R knee flexion: ~ 100 deg Strength Lower Extremity Strength Assessment Right Impaired Hip 4-/5 Knee 3+/5 Coordination Assessment Gross Coordination Gross Coordination WNL Sensation Assessment Sensation Sensation Description Numbness Comments Sensation Comments R upper thigh numbness, buttocks/groin Muscle Tone Muscle Tone WNL Yes M6 PT-IP Treatment Start: 07/07/20 17:12 Freq: NEEDED Status: Discharge Protocol: Document 07/08/20 14:18 SP (Rec: 07/08/20 17:44 SP [id number]) Physical Therapy Treatment Exercises Exercises Ankle Pumps,Seated Knee Flexion/Extension Knee ROM Measurement 80 deg Education Education Provided Precautions,Weight Bearing Status,Post-Op Packet,Safety M7 PT-IP Assessment and Plan Start: 07/07/20 17:12 Freq: NEEDED Status: Discharge Protocol: Document 07/08/20 14:18 SP (Rec: 07/08/20 17:44 SP [id number]) PT Summary Assessment and Plan Potential Rehabilitation Potential Good Status of Condition at Evaluation Evolving Summary Impairments Pain,ROM,Strength,Balance, Coordination,Sensation,Tone, Cognition,Bed Mobility, Transfers,Gait,Activity Tolerance Progress Towards Goals Progressing Toward Goals,Slow Progress due to Pain,Slow Progress due to Activity Tolerance Assessment Summary Pt's BP maintained 90s-108 systolic/ 60s diastolic with no reports of dizziness during mobility. FURNACE ERECTOR suggested to get automated BP cuff for safety awareness use at home and call physician if have concerns, awareness of normal values and suggested to use urinal during night at this time for safety with verbal agreement. SBA during all mobility using fWW. Pt is ok to return home with friend to assist him when medically cleared. Outpt PT appt on Monday. Goals Bed Mobility Goal Independent Transfer Goal Independent,Front Wheeled Walker Gait Goal Independent,Front Wheel Walker Gait Distance 150 Other Goals up/down 3 steps SPC/bilateral crutches SBA Days to Meet Goals 5 Frequency of Treatment Frequency Of Treatment Twice a Day Treatment Plan Physical Therapy Treatment Plan Bed Mobility Training,Transfer Training,Gait Training, Therapeutic Exercise,Balance Retraining,Post Op Education, Discharge Planning,Hot or Cold Pack,Neuromuscular Re-ed, Coordination Retraining,Manual Therapy Other Recommendations and Next Treatment Assess vitals, gait further Focus distance, post op ex. Precautions Other Precautions RLE WBAT Recommendations To Nursing Amount of Assist Needed Standby Assistance Discharge Recommendations PT Discharge Recommendations Home with Assistance, Outpatient PT Transportation Needs at Discharge Private Vehicle
--- NOTE | 2020-07-08 15:35 | PC.NURSE ---
DI given to pt and friend, discussed- f/u appts, diet, weight measures, s/s of infection, drsg care, reasons to seek medical attention. Pt reports receiving prescriptions for oxycodone, tylenol, aspirin and ibuprofen at his pre-op appt, so paper prescriptions placed in shredder. All questions answered. IV removed, intact, tolerated well. Drain site drsg changed per pt request, replaced with gauze and tegaderm. Pt dressed with assistance of LOBSTER CATCHER. Belongings brought to POV by friend/local combination truck driver Deandra.
== END 2020-07-08 15:53 | disposition home or self-care (01) ==
LOC: OR 06:17 → AC 06:18
PROVIDERS: PCP Student in an Organized Health Care Education/Training Program; Referring Provider Orthopaedic Surgery; Visit Provider Orthopaedic Surgery
PROC: 0SRC0JZ Replacement of Right Knee Joint with Synthetic Substitute, Open Approach (ICD-10-PCS; CPT 27447; principal; 2020-07-07 07:45)
DX: M17.11 Unilateral primary osteoarthritis, right knee (principal); M21.161 Varus deformity, not elsewhere classified, right knee; E78.5 Hyperlipidemia, unspecified
CPT/HCPCS: 27447; 36415; 73560; 85014; 85018; 97110; 97116; 97162; 97530; C1776; C9290; J0690; J1100; J2250; J2274; J2405; J2704; J3010

== ENCOUNTER → 2024-09-05 09:31 | Outpatient (CLI) | payer MEDICARE, OTHER, SELFPAY ==
[2020-07-07 11:39] VITALS: BMI 21.1
== END ==
PROVIDERS: PCP Student in an Organized Health Care Education/Training Program; Referring Provider Student in an Organized Health Care Education/Training Program; Visit Provider Student in an Organized Health Care Education/Training Program
DX: I27.81 Cor pulmonale (chronic) (principal)
CPT/HCPCS: 94060; 94726; 94729